=== PATIENT | male | born 1960 | race Two or more races ===

== ENCOUNTER 2022-03-12 12:54 | Emergency (ER) | payer BC ==
[~2022-03-12] VITALS: Ht 170.2 cm; Wt 73.5 kg
[2022-03-12] MEDS ORDERED: IBUPROFEN 600 MG TAB PO STA (13:47)
[2022-03-12] MEDS ORDERED: CEFDINIR300 MG PO (15:08)
[2022-03-12] MEDS ORDERED: BEBTELOVIMAB 175 MG INJ IV ONE (15:15)
[2022-03-12 15:30] VITALS: BP 133/78
[2022-03-12] MEDS ORDERED: PROVENTIL HFA6.7 GM INH (22:04)
== END 2022-03-12 15:49 | disposition home or self-care (01) ==
LOC: FSED 13:17
DX: R50.9 Fever, unspecified (principal); U07.1 COVID-19; H66.93 Otitis media, unspecified, bilateral; J45.909 Unspecified asthma, uncomplicated; I10 Essential (primary) hypertension; E78.5 Hyperlipidemia, unspecified
CPT/HCPCS: 71046; 99283